=== PATIENT | female | born 1945 | race Caucasian/White ===

== ENCOUNTER → 2017-10-14 18:30 | Outpatient (REF) | payer MEDICARE, SELFPAY ==
[2017-10-15 09:03] LABS: Color, Urine Yellow (Yellow); Glucose, Dipstick Normal (Normal); Ketone-Dipstick Negative (Negative); Leukocyte Esterase-Dipstick 500 /ul (Negative); Nitrite-Dipstick Negative (Negative); Occult Blood-Urine 25 /ul (Negative); Protein-Dipstick 15 mg/dl (Negative); Specific Gravity, Urine 1.015 (1.002-1.030); Urine Bilirubin Dipstick Negative (Negative); Urine Clarity Sl. Cloudy (Clear); Urine Urobilinogen Normal (Normal)
== END ==
LOC: OLS.BROOKB 18:30
PROVIDERS: Visit Provider Family Medicine
DX: N39.0 Urinary tract infection, site not specified (principal)
CPT/HCPCS: 81002; 87086; 87088

== ENCOUNTER → 2017-10-16 05:00 | Outpatient (REF) | payer MEDICARE, SELFPAY ==
[2017-09-27 17:12] VITALS: BP 95/54
[2017-10-16 08:22] LABS: Hematocrit 38.6 % (37-47); Mean Corp Hgb Conc 31.1 g/gl (32-36); Mean Corpuscular Hgb 27.5 pg (27.0-32.0); Mean Corpuscular Volume 88.3 fL (81-99); Mean Platelet Vol. 9.1 fl (6.2-12.0); Platelet Count 273 K/mm3 (150-450); RBC Distribution Width CV 13.4 % (11.6-14.6); Red Blood Count 4.37 M/mm3 (4.2-5.4); White Blood Count 4.5 K/mm3 (4.4-11.0)
[2017-10-16 08:24] LABS: Scan Indicated on CBC? Y/N NO
[2017-10-16 08:42] LABS: ALB/GLOB Ratio 0.9 RATIO (0.9-2.4); AST(SGOT) 12 U/L (15-37); Alanine Aminotransfer ALT/SGPT 16 U/L (13-56); Albumin, Serum 3.5 g/dL (3.2-5.0); Alkaline Phosphatase 63 U/L (45-117); Anion Gap 8 (5-15); BUN 15 mg/dL (7-18); BUN/Creat Ratio 18.3 RATIO (10-20); Calcium,Total 8.8 mg/dL (8.5-10.1); Chloride 107 mmol/L (98-107); Creatinine, Serum 0.82 mg/dL (0.55-1.02); EST Glomerular Filtration Rate 72 mL/min (>60); Est Glom Filt Rate - Afr Amer 87 mL/min (>60); Glucose 95 mg/dL (74-106); Potassium 3.9 mmol/L (3.5-5.1); Protein, Total 7.5 g/dL (6.4-8.2); Sodium Level 144 mmol/L (136-145); Thyroid Stim Hormone (TSH) 1.76 uIU/mL (0.358-3.74)
== END ==
LOC: OLS.BROOKB 05:00
PROVIDERS: Visit Provider Family Medicine
DX: E03.9 Hypothyroidism, unspecified (principal)
CPT/HCPCS: 36415; 80053; 84443; 85027

== ENCOUNTER → 2017-10-19 15:30 | Outpatient (REF) | payer MEDICARE, SELFPAY ==
[2017-10-20 11:41] LABS: Color, Urine Yellow (Yellow); Glucose, Dipstick Normal (Normal); Ketone-Dipstick Negative (Negative); Leukocyte Esterase-Dipstick Negative /ul (Negative); Nitrite-Dipstick Negative (Negative); Occult Blood-Urine Negative /ul (Negative); Protein-Dipstick Negative (Negative); Urine Bilirubin Dipstick Negative (Negative); Urine Clarity Sl. Cloudy (Clear); Urine Urobilinogen Normal (Normal)
== END ==
LOC: OLS.BROOKB 15:30
PROVIDERS: Visit Provider Family Medicine
DX: N39.0 Urinary tract infection, site not specified (principal)
CPT/HCPCS: 81002; 87086

== ENCOUNTER → 2017-11-15 10:15 | Outpatient (REF) | payer MEDICARE, SELFPAY ==
[2017-11-15 12:07] LABS: Color, Urine Yellow (Yellow); Glucose, Dipstick Normal (Normal); Ketone-Dipstick Negative (Negative); Leukocyte Esterase-Dipstick 500 /ul (Negative); Nitrite-Dipstick Negative (Negative); Occult Blood-Urine 25 /ul (Negative); Protein-Dipstick Negative (Negative); Urine Bilirubin Dipstick Negative (Negative); Urine Clarity Clear (Clear); Urine Urobilinogen Normal (Normal)
== END ==
PROVIDERS: Visit Provider Family Medicine
DX: N39.0 Urinary tract infection, site not specified (principal)
CPT/HCPCS: 81002; 87086; 87088

== ENCOUNTER → 2018-03-27 13:30 | Outpatient (REF) | payer MEDICARE, SELFPAY ==
[2018-03-28 10:19] LABS: Color, Urine Yellow (Yellow); Glucose, Dipstick Normal (Normal); Ketone-Dipstick Negative (Negative); Leukocyte Esterase-Dipstick 500 /ul (Negative); Nitrite-Dipstick Negative (Negative); Occult Blood-Urine 25 /ul (Negative); Protein-Dipstick 15 mg/dl (Negative); Urine Bilirubin Dipstick Negative (Negative); Urine Clarity Turbid (Clear); Urine Urobilinogen 1 mg/dl (Normal)
== END ==
LOC: OLS.BROOKB 13:30
PROVIDERS: Visit Provider Family Medicine
DX: N39.0 Urinary tract infection, site not specified (principal)
CPT/HCPCS: 81002; 87086; 87088

== ENCOUNTER 2018-06-01 14:21 | Emergency (ER) | payer MEDICARE, SELFPAY ==
[2018-06-01 14:23] VITALS: BP 136/73; PULSE 74; RESP 16; TEMP 36.4; O2SAT 100; BMI 32.3
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
== END 2018-06-01 15:11 | disposition home or self-care (01) ==
PROVIDERS: Emergency Provider Emergency Medicine; Family Provider Family Medicine; PCP Family Medicine
DX: Z04.41 Encounter for examination and observation following alleged adult rape (principal); G30.9 Alzheimer's disease, unspecified; F02.80 Dementia in other diseases classified elsewhere, unspecified severity, without behavioral disturbance, psychotic disturbance, mood disturbance, and anxiety; E78.00 Pure hypercholesterolemia, unspecified; E03.9 Hypothyroidism, unspecified; Z79.82 Long term (current) use of aspirin; Z79.899 Other long term (current) drug therapy
CPT/HCPCS: 99282

== ENCOUNTER → 2018-11-26 15:45 | Outpatient (REF) | payer MEDICARE, SELFPAY ==
[2018-11-27 07:51] LABS: Bacteria 0 SEEN /hpf (None Seen); Mucous, Urine 0 SEEN /hpf (<or=2+); Red Blood Cells-Urine 0 SEEN /hpf (0-5)
[2018-11-27 08:08] LABS: Color, Urine Yellow (Yellow); Glucose, Dipstick Normal (Normal); Ketone-Dipstick Negative (Negative); Leukocyte Esterase-Dipstick 100 /ul (Negative); Nitrite-Dipstick Negative (Negative); Occult Blood-Urine Negative /ul (Negative); Protein-Dipstick Negative (Negative); Urine Bilirubin Dipstick Negative (Negative); Urine Clarity Clear (Clear); Urine Urobilinogen Normal (Normal)
[2018-11-27 08:20] LABS: Squamous Epithelial Cells - UA 0-5 SEEN /hpf (5-10); White Blood Cells 0-5 SEEN /hpf (0-5)
== END ==
LOC: OLS.BROOKB 15:45
DX: N39.0 Urinary tract infection, site not specified (principal)
CPT/HCPCS: 81001; 87086; 87088

== ENCOUNTER 2019-03-21 14:22 | Emergency (ER) | payer MEDICARE, SELFPAY ==
[2019-03-21 14:23] VITALS: BP 84/67; PULSE 61; RESP 18; TEMP 36.4; O2SAT 100; BMI 26.4
--- NOTE | 2019-03-21 14:44 | EKG12_ITS ---
Test Reason : FALL Blood Pressure : / mmHG Vent. Rate : 057 BPM Atrial Rate : 057 BPM P-R Int : 194 ms QRS Dur : 086 ms QT Int : 424 ms P-R-T Axes : 061 033 054 degrees QTc Int : 412 ms Sinus bradycardia Otherwise normal ECG Confirmed by SAIRA ALCALA, ELY ([id number]), editor magazine RAFAELA GLEASON ([id number]) on 03/23/2019 1:56:47 PM Referred By: ISATU Confirmed By:ELY CHÁVEZ MD
[2019-03-21 14:50] LABS: Absolute Lymphocyte Count 1.26 X10^3/ul (0.83-4.51); Absolute Neutrophil Count 2.2 X10^3/uL (2.0-7.7); Basophil# 0.01 X10^3/uL; Basophil% 0.3 % (0-1); Eosinophils% 2.5 % (0-5); Hematocrit 36.9 % (37-47); Hemoglobin 12.4 g/dl (12.0-15.0); Lymphocyte # 1.26 X10^3/ul (4.0); Lymphocyte % 32.1 % (19-41); Mean Corp Hgb Conc 33.6 g/gl (32-36); Mean Corpuscular Hgb 29.1 pg (27.0-32.0); Mean Corpuscular Volume 86.6 fL (81-99); Mean Platelet Vol. 9.6 fl (6.2-12.0); Monocyte# 0.39 X10^3/uL; Monocyte% 9.9 % (0-10); Neutrophil # 2.17 X10^3/uL (2.7-7.7); Neutrophil % 55.2 % (47-70); Platelet Count 183 K/mm3 (150-450); RBC Distribution Width CV 13.1 % (11.6-14.6); RBC Distribution Width SD 40.5 fl (35.1-43.9); Red Blood Count 4.26 M/mm3 (4.2-5.4); White Blood Count 3.9 K/mm3 (4.4-11.0)
[2019-03-21 14:51] LABS: POSITIVE COUNT NO; POSITIVE DIFFERENTIAL NO; POSITIVE MORPHOLOGY NO
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
--- NOTE | 2019-03-21 14:53 | RAD_ITS ---
STUDY: X-RAY CHEST REASON FOR EXAM: Female, 73 years old. Fall TECHNIQUE: Frontal view of the chest COMPARISON: 03/27/2018 FINDINGS: The lungs are clear. There are no pleural effusions. There is no pneumothorax. The heart is normal in size. The visualized osseous structures are within normal limits. RAD/Chest 1 View (Portable) IMPRESSION: No acute thoracic pathology. Electronically Signed: Chris Pang, at 15:19 EDT Tel , Service support ,
[2019-03-21] MEDS: 0.9% Normal Saline 1,000 ML 1000 ML IV (15:00)
[2019-03-21 15:07] LABS: Anion Gap 5 (5-15); BUN 18 mg/dL (7-18); BUN/Creat Ratio 15.7 RATIO (10-20); Calcium,Total 8.5 mg/dL (8.5-10.1); Chloride 109 mmol/L (98-107); Creatinine, Serum 1.15 mg/dL (0.55-1.02); EST Glomerular Filtration Rate 49 mL/min (>60); Est Glom Filt Rate - Afr Amer 59 mL/min (>60); Estimated Creatinine Clearance 39.57 ml/min; Glucose 81 mg/dL (74-106); Potassium 3.7 mmol/L (3.5-5.1); Sodium Level 142 mmol/L (136-145)
--- NOTE | 2019-03-21 15:47 | ED.DEP ---
ED Disposition - Plan for ED Patient: Disposition: Home or Assisted Living Instructions: HYPOTENSION, All Causes Referrals: Shoshana Gorman MD [Primary Care Provider] - As soon as possible Additional Instructions: Patient's labs today including a CBC, chemistry panel, chest x-ray and EKG were unremarkable. She had blood pressures running low and will need to be monitored. Need to encourage fluids to keep her blood pressure up. The patient should not be up ambulating on her own until her pressure is greater than 110 systolic. We did not do a CAT scan because the son did not want that done because of her severe dementia. We also did not do a urinalysis because we would had to straight catheter. He and I discussed that.
[2019-03-21 16:30] VITALS: BP 98/48; PULSE 52; RESP 18
--- NOTE | 2019-03-21 16:31 | ED.RN ---
pt poa refused ivfluids dr. love aware
== END 2019-03-21 16:32 | disposition home or self-care (01) ==
PROVIDERS: Emergency Provider Emergency Medicine; Family Provider Family Medicine; PCP Family Medicine
DX: I95.9 Hypotension, unspecified (principal); G30.9 Alzheimer's disease, unspecified; F02.80 Dementia in other diseases classified elsewhere, unspecified severity, without behavioral disturbance, psychotic disturbance, mood disturbance, and anxiety; S00.93XA Contusion of unspecified part of head, initial encounter; W19.XXXA Unspecified fall, initial encounter; Y93.9 Activity, unspecified; Y92.129 Unspecified place in nursing home as the place of occurrence of the external cause; Z85.3 Personal history of malignant neoplasm of breast; Z79.899 Other long term (current) drug therapy
CPT/HCPCS: 71045; 80048; 84484; 85025; 93005; 96360; 96361; 99285; J7030; A4216

== ENCOUNTER 2019-04-25 00:57 | Emergency (ER) | payer SELFPAY ==
[2019-04-25 00:58] VITALS: BP 158/128; PULSE 72; RESP 15; TEMP 36.2; O2SAT 95; BMI 24.1
[2019-04-25 01:19] VITALS: BP 124/88
--- NOTE | 2019-04-25 01:33 | ED.VIS.FALL ---
History of Present Illness Chief Complaint: Fall Informant: - - senior care Limited: Dementia Occurred: - - Unknown. Apparently fell out of bed. Narrative: Unknown details, patient has severe dementia, DNR Comfort Care only, alert and oriented to person only at baseline. She is confused. No history is available from her. - Past Medical History (1) Hypothyroidism Status: Chronic (2) Alzheimer's dementia Status: Chronic (3) Hyperlipidemia Status: Chronic (4) Major depressive disorder Status: Chronic (5) Generalized anxiety disorder Status: Chronic Past Medical History - Allergies and Home Meds Allergies/Adverse Reactions: Allergies Penicillins Allergy (Verified 03/21/19 14:27) Unknown Primary Care Physician: Shoshana Gorman MD [Primary Care Provider] - Lives: Care Home Smoking Status: Unknown if ever smoked Review of Systems ROS: Unable to Obtain Physical Exam Vital Signs/Narrative: Vital Signs Temp Pulse Resp BP Pulse Ox 04/25/19 01:19 124/88 H 04/25/19 00:58 97.2 F L 72 15 158/128 H 95 General: Well nourished, Well developed Head: Trauma - Left forehead, Tenderness - Left forehead Eyes: Perrl, EOMI - grossly intact; will not follow commands ENT: TM's clear, No hemotympanum or drainage. Negative for: Otorrhea, Nasal trauma Neck: Nontender, Full ROM Cardiovascular: Regular rate, Regular rhythm, No murmurs Respiratory: No distress, CTA bilaterally, Chest nontender Abdomen: Soft, Nontender, Nondistended, Normal bowel sounds Back: Nontender Skin: Normal color, No rash, Trauma - 2 lacerations left forehead with an accompanying skin tear on 1 of them. They are parallel, 1 cm each, subcutaneous. Clean appearing. Oozing of blood. Neurological: Alert, Cranial nerves II-XII grossly intact, Normal Strength, Normal Sensation, Confused. Negative for: Oriented x3 Psychological: Normal affect, Normal Mood Diagnostic/Tx/Re-eval Clinical Impression(s) from Imaging Studies Brain CT 04/25/19 01:37 IMPRESSION: Negative unenhanced CT scan of the brain for acute intracranial abnormality. Chronic involutional changes. Electronically Signed: Drew Dowling, at 2:13 EDT Tel , Service support , - Medical Decision Making Her medical list was reviewed. She is on no aspirin or anticoagulants. We discussed with the son healthcare power of bankruptcy attorney, he is okay with us imaging her head and fixing lacerations, but he really wants us to be respectful of her comfort care status and does not want anything else done which I think is very reasonable. This was done, CT showed no acute traumatic abnormality, with nursing assisting to hold her still, we placed 3 quick sutures in the lacerations of her left forehead, keeping the wounds closed and bleeding controlled, they were anesthetized with lidocaine with epinephrine 1.5 cc total. I was not able to find any dissolvable sutures appropriate for skin use in the appropriate size. Therefore these will need to be removed an approximate 5 or 6 days. I thought closing the wounds was most reasonable to prevent infection, and to limit bleeding if the patient manipulates the wounds, as she is very confused. Procedures - Lacerations Left forehead Length: 2 cm - total, including both Depth: Sub Q Shape: Linear Prep: Sterile Conditions, Shure-Clens, Chlorhexadine Laceration Repair: Lidocaine with epi, Local Irrigated (ml): 20 Number of Sutures/[place]: 3 Suture Information: Ethilon, Simple, 6-0 ED Disposition - Plan for ED Patient: Disposition: Home or Assisted Living Diagnosis: Closed head injury without loss of consciousness, Facial laceration Instructions: FALL, Uncertain Cause, LACERATION, All Referrals: Shoshana Gorman MD [Primary Care Provider] - 5 Days for suture removal
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
[2019-04-25] MEDS: Lidocaine/Epi/Tetracaine 50 ML 1 APPLIC TOPICAL (01:46)
[2019-04-25 03:00] VITALS: BP 111/81; PULSE 74; RESP 15; O2SAT 96
--- NOTE | 2019-04-25 04:26 | ED.RN ---
pt is agitated and trying to get out of bed, pt is unsteady on her feet. dr. castillo made aware, no further orders at this time, will continue to monitor pt.
--- NOTE | 2019-04-25 04:48 | ED.RN ---
ATTEMPTED TO CONTACT PT SON. LEFT A MESSAGE
--- NOTE | 2019-04-25 04:49 | ED.RN ---
REPORT CALLED TO DOM
[2019-04-25 05:05] VITALS: BP 111/76; PULSE 78; RESP 17; O2SAT 96
== END 2019-04-25 05:12 | disposition home or self-care (01) ==
PROVIDERS: Emergency Provider Emergency Medicine; Family Provider Family Medicine; PCP Family Medicine
DX: S01.81XA Laceration without foreign body of other part of head, initial encounter (principal); W06.XXXA Fall from bed, initial encounter; Y93.9 Activity, unspecified; Y92.129 Unspecified place in nursing home as the place of occurrence of the external cause; E03.9 Hypothyroidism, unspecified; G30.9 Alzheimer's disease, unspecified; F02.80 Dementia in other diseases classified elsewhere, unspecified severity, without behavioral disturbance, psychotic disturbance, mood disturbance, and anxiety; F32.9 Major depressive disorder, single episode, unspecified; F41.1 Generalized anxiety disorder; Z66 Do not resuscitate; Z79.899 Other long term (current) drug therapy
CPT/HCPCS: 12011; 70450; 99285

== ENCOUNTER → 2020-01-12 16:30 | Outpatient (REF) | payer MEDICARE, SELFPAY | PROVIDERS: PCP Family Medicine; Visit Provider Family Medicine | DX: R19.7 Diarrhea, unspecified (principal) ==